=== PATIENT | female | born 1990 ===

== ENCOUNTER 2017-12-22 19:02 | Emergency (ER) | payer OTHER ==
[2017-12-22 19:02] VITALS: BMI 24.2
[2017-12-22 19:19] VITALS: BP 110/62; PULSE 64; RESP 18; TEMP 98.2; O2SAT 100
[2017-12-22] MEDS ORDERED: Sodium Chloride 0.9% 1,000 ML IV STA (20:00)
--- NOTE | 2017-12-22 20:03 | ED PDOC ---
HPI: Female Pain Time Seen by Provider: 12/22/17 19:46 Chief Complaint (Nursing): Abdominal Pain Chief Complaint (Provider): Pelvic pain History Per: Patient History/Exam Limitations: no limitations Onset/Duration Of Symptoms: Days (2) Additional Complaint(s): Pt. with pelvic pain on left lower. Constant. No nausea, vomit, diarrhea, weakness, headaches, back pain, vaginal bleeding. Increased frequency of urination. Is 5 wks preg. Past Medical History Reviewed: Nursing Documentation, Vital Signs Vital Signs: Last Vital Signs Temp 98.2 F 12/22/17 19:15 Pulse 64 12/22/17 19:15 Resp 18 12/22/17 19:15 BP 110/62 12/22/17 19:15 Pulse Ox 100 12/22/17 19:15 - Medical History PMH: No Chronic Diseases - Surgical History Surgical History: No Surg Hx - Family History Family History: States: Unknown Family Hx - Social History Alcohol: None Drugs: Denies - Home Medications Home Medications: Ambulatory Orders Medication Instructions Recorded No Known Home Med 08/12/16 - Allergies Allergies/Adverse Reactions: Allergies Allergy/AdvReac Type Severity Reaction Status Date / Time No Known Allergies Allergy Verified 08/12/16 12:09 Review of Systems ROS Statement: Except As Marked, All Systems Reviewed And Found Negative Genitourinary Female: Positive for: Frequency, Pelvic Pain Physical Exam - Reviewed Nursing Documentation Reviewed: Yes Vital Signs Reviewed: Yes - Physical Exam Appears: Positive for: Non-toxic, No Acute Distress Head Exam: Positive for: ATRAUMATIC, NORMAL INSPECTION, NORMOCEPHALIC Skin: Positive for: Normal Color, Warm, DRY Eye Exam: Positive for: EOMI, Normal appearance, PERRL ENT: Positive for: Normal ENT Inspection Neck: Positive for: Normal, Painless ROM Cardiovascular/Chest: Positive for: Regular Rate, Rhythm Respiratory: Positive for: CNT, Normal Breath Sounds Gastrointestinal/Abdominal: Positive for: Bowel Sounds, Soft, Tenderness (L lower pelvic) Back: Positive for: Normal Inspection. Negative for: L CVA Tenderness, R CVA Tenderness Extremity: Positive for: Normal ROM. Negative for: Tenderness, Pedal Edema Neurologic/Psych: Positive for: Alert, Oriented - Laboratory Results Result Diagrams: 12/22/17 21:12 12/22/17 21:12 Interpretation Of Abn Labs: bhcg elevated - ECG O2 Sat by Pulse Oximetry: 100 Pulse Ox Interpretation: Normal - CT Scan/US US Other Rad Studies (CT/US): Read By Radiologist Other Rad Interpretation: SLIUP; subchorionic bleed - Progress ED Course And Treament: 2320: Stable. AAOx3. Pain free. Tolerated PO. FU with obgyn. Disposition - Clinical Impression Clinical Impression: Threatened , Subchorionic bleed - Patient ED Disposition Is Patient to be Admitted: No Counseled Patient/Family Regarding: Studies Performed, Diagnosis, Need For Followup - Disposition Referrals: [facility] [Outside] - 12/23/17 [facility] - 12/24/17 Disposition: Routine/Home Disposition Time: 23:21 Condition: STABLE Additional Instructions: Return if not better in 3 days. Instructions: Threatened Miscarriage Print Language: MICRONESIAN
[2017-12-22 21:18] LABS: BASO % 0.4 % (0.0-2.0); EOS # 0.1 K/uL (0.0-0.7); EOS % 1.5 % (0.0-4.0); HEMOGLOBIN 10.6 g/dL (12.0-16.0); LYMPH # 1.1 K/uL (1.0-4.3); LYMPH % 23.7 % (20.0-40.0); MEAN CELL VOLUME 84.2 fl (81.0-99.0); MEAN CORPUSCULAR HEMOGLOBIN 28.1 pg (27.0-31.0); MEAN CORPUSCULAR HGB CONC 33.4 g/dL (33.0-37.0); MEAN PLATELET VOLUME 8.4 fl (7.2-11.7); MONO # 0.5 K/uL (0.0-0.8); MONO % 10.1 % (0.0-10.0); NEUT % 64.3 % (50.0-75.0); NRBC % 0.1 % (0.0-0.0); RBC 3.78 Mil/uL (3.80-5.20); RED CELL DISTRIBUTION WIDTH 15.3 % (11.5-14.5); WHITE BLOOD COUNT 4.7 K/uL (4.8-10.8)
--- NOTE | 2017-12-22 21:28 | US ---
EXAM: US , Transvaginal CLINICAL HISTORY: 27 years old, female; Pain; Other: Pelvic pain; Gestational age or lmp: 11/12/17; ; Additional info: Preg and pain TECHNIQUE: Real-time transvaginal obstetrical ultrasound of the maternal pelvis and a first trimester with image documentation. Transvaginal imaging was used for better evaluation of the fetus and adnexa. COMPARISON: No relevant prior studies available. FINDINGS: Gestation: Single live intrauterine gestation. heart rate of 113 beats per minute. [place]-rump length of 0.2 cm, correlating with gestational age of 5 weeks 5 days. Uterus/cervix: 1.6 x 0.5 x 1.6 cm collection along gestational sac. Closed cervix. Ovaries: RIGHT ovary: Normal. LEFT ovary: 3.7 x 3.9 x 4.4 cm anechoic lesion. No adnexal masses. Free fluid: No significant free fluid. IMPRESSION: 1. Single live intrauterine gestation. 2. Subchorionic hemorrhage. 3. LEFT ovarian cyst.
[2017-12-22 21:32] LABS: CALCIUM 8.6 mg/dL (8.4-10.2); GFR AFRICAN-AMERICAN > 60; GFR NON-AFRICAN AMERICAN > 60
[2017-12-22 21:51] LABS: ALB/GLOB RATIO 1.1 (1.0-2.1); ALBUMIN 3.9 g/dL (3.5-5.0); ALT/SGPT 33 U/L (9-52); AST/SGOT 37 U/L (14-36); BLOOD UREA NITROGEN 9 mg/dl (7-17)
== END 2017-12-22 23:52 | disposition home or self-care (01) ==
LOC: H.ER 19:02
DX: O20.0 Threatened abortion (principal); Z3A.01 Less than 8 weeks gestation of pregnancy
CPT/HCPCS: 76817; 80053; 81025; 84702; 85025; 86850; 86900; 96360; 99283; J7030

== ENCOUNTER 2018-01-17 06:11 | Emergency (ER) | payer OTHER ==
[2018-01-17 06:30] VITALS: BMI 30.8
--- NOTE | 2018-01-17 07:24 | ED PDOC ---
HPI: Female Pain Time Seen by Provider: 01/17/18 06:18 Chief Complaint (Nursing): Female Genitourinary Chief Complaint (Provider): Vaginal Bleeding and Lower Abdominal Pain History Per: Patient History/Exam Limitations: no limitations Onset/Duration Of Symptoms: Hrs Current Symptoms Are (Timing): Still Present Severity: None Quality Of Discomfort: "Pain" Associated Symptoms: denies: Fever, Nausea, Vomiting, Back Pain Alleviating Factors: None Additional Complaint(s): 27 year old female at 2 months presents to the emergency department complaining of vaginal bleeding and mild lower abdominal pain. Patient states that she noticed vaginal bleeding (x1 episode) in the toilet this morning after she peed. She reports that she has an appointment with the women[facility] health clinic on Thursday. Abnormal Vaginal Bleeding: Yes : 3 Para: 2 Past Medical History Reviewed: Historical Data, Nursing Documentation, Vital Signs Vital Signs: Last Vital Signs Temp 98.4 F 01/17/18 06:15 Pulse 62 01/17/18 06:15 Resp 16 01/17/18 06:15 BP 107/61 01/17/18 06:15 Pulse Ox 98 01/17/18 06:15 - Medical History PMH: No Chronic Diseases - Surgical History Surgical History: - Family History Family History: States: Unknown Family Hx - Living Arrangements Living Arrangements: With Family - Social History Current smoker - smoking cessation education provided: No Ex-Smoker (has not smoked in the last 12 months): No Alcohol: None Drugs: Denies - Home Medications Home Medications: Ambulatory Orders Medication Instructions Recorded No Known Home Med 08/12/16 - Allergies Allergies/Adverse Reactions: Allergies Allergy/AdvReac Type Severity Reaction Status Date / Time No Known Allergies Allergy Verified 01/17/18 06:30 Review of Systems ROS Statement: Except As Marked, All Systems Reviewed And Found Negative Gastrointestinal: Positive for: Abdominal Pain (mild lower abdominal pain) Genitourinary Female: Positive for: Vaginal Bleeding Physical Exam - Reviewed Nursing Documentation Reviewed: Yes Vital Signs Reviewed: Yes - Physical Exam Appears: Positive for: Non-toxic, No Acute Distress Head Exam: Positive for: ATRAUMATIC, NORMAL INSPECTION, NORMOCEPHALIC Skin: Positive for: Normal Color, Warm, Dry. Negative for: Rash Eye Exam: Positive for: Normal appearance, EOMI, PERRL. Negative for: Nystagmus ENT: Positive for: Normal ENT Inspection. Negative for: Nasal Congestion, Tonsillar Exudate, Tonsillar Swelling Neck: Positive for: Normal, Painless ROM, Supple Cardiovascular/Chest: Positive for: Regular Rate, Rhythm, Chest Non Tender. Negative for: Gallop, Murmur, Tachycardia Respiratory: Positive for: Normal Breath Sounds. Negative for: Rales, Rhonchi, Wheezing, Respiratory Distress Gastrointestinal/Abdominal: Positive for: Normal Exam, Bowel Sounds, Soft. Negative for: Tenderness, Mass, Guarding, Rebound Back: Positive for: Normal Inspection. Negative for: L CVA Tenderness, R CVA Tenderness, Vertebral Tenderness Extremity: Positive for: Normal ROM. Negative for: Tenderness, Calf Tenderness , Deformity, Swelling Neurologic/Psych: Positive for: Alert, Oriented, Gait. Negative for: Motor/ Sensory Deficits - Laboratory Results Result Diagrams: 01/17/18 07:35 01/17/18 07:35 - ECG O2 Sat by Pulse Oximetry: 98 (RA) Pulse Ox Interpretation: Normal Medical Decision Making Medical Decision Makin Initial Impression 27 year old female presenting with vaginal bleeding in Initial Plan: * ABO/RH type * Type and Screen * Beta-HCG, Quantitative * CMP * Udip * Upreg * CBC * PTT * Prothrombin Time * OB preg 1st Tri and OB Transvag * Reevaluation 0654 Upreg: Positive 0709 Udip: unremarkable 0904 PROCEDURE: OB Pelvic Ultrasound HISTORY: Vag bleeding LMP: COMPARISON: None available. FINDINGS: UTERUS: Gestational sac: Single intrauterine gestation. Heart rate: 159 bpm. age (Ultrasound estimated): 9 weeks and 5 days Mar-gestational hemorrhage: 3.2 x 0.9 x 1.3 centimeter subchorionic hemorrhage. . Date of delivery (Ultrasound estimated) : Uterus measures cm. Normal in size and appearance. CERVIX: Measures cm. Long and closed. No cervical abnormality seen. RIGHT OVARY: Measures cm. No mass lesion. Normal flow. LEFT OVARY: Measures cm. No solid mass. Normal flow. 5.4 centimeter corpus luteum cyst. FREE FLUID: None. OTHER FINDINGS: None. IMPRESSION: Nine weeks and 5 days gestational age . Small subchorionic hemorrhage. Documented by Maria Guadalupe Arevalo acting as a scribe for Jordyn Griffin MD. All medical record entries made by the Scribe were at my direction and personally dictated by me. I have reviewed the chart and agree that the record accurately reflects my personal performance of the history, physical exam, medical decision making, and the department course for this patient. I have also personally directed, reviewed, and agree with the discharge instructions and disposition. Disposition - Clinical Impression Clinical Impression: Subchorionic hemorrhage in first trimester Counseled Patient/Family Regarding: Studies Performed - Disposition Disposition: Routine/Home Disposition Time: 10:57 Condition: STABLE Additional Instructions: FOLLOW-UP WITH PREVIOUSLY SCHEDULED APPT WITH [facility]. Instructions: Threatened Miscarriage, Bleeding With Forms: [facility] [place] (Urdu) Print Language: ESTONIAN - POA Present On Arrival: None
[2018-01-17 07:48] LABS: BASO % 0.2 % (0.0-2.0); EOS # 0.1 K/uL (0.0-0.7); EOS % 1.4 % (0.0-4.0); LYMPH # 1.2 K/uL (1.0-4.3); LYMPH % 22.7 % (20.0-40.0); MEAN CELL VOLUME 85.3 fl (81.0-99.0); MEAN CORPUSCULAR HEMOGLOBIN 28.2 pg (27.0-31.0); MEAN CORPUSCULAR HGB CONC 33.1 g/dL (33.0-37.0); MEAN PLATELET VOLUME 7.6 fl (7.2-11.7); MONO # 0.4 K/uL (0.0-0.8); MONO % 7.1 % (0.0-10.0); NEUT # 3.6 K/uL (1.8-7.0); NEUT % 68.6 % (50.0-75.0); RBC 3.91 Mil/uL (3.80-5.20); RED CELL DISTRIBUTION WIDTH 15.3 % (11.5-14.5); WHITE BLOOD COUNT 5.2 K/uL (4.8-10.8)
[2018-01-17 08:01] LABS: PARTIAL THROMBOPLASTIN TIME 32.1 Seconds (25.6-37.1); PROTHROMBIN TIME 11.4 Seconds (9.8-13.1)
[2018-01-17 08:15] LABS: ALB/GLOB RATIO 1.1 (1.0-2.1); ALBUMIN 3.7 g/dL (3.5-5.0); ALT/SGPT 25 U/L (9-52); AST/SGOT 20 U/L (14-36); BLOOD UREA NITROGEN 9 mg/dl (7-17); CALCIUM 8.9 mg/dL (8.4-10.2); GFR AFRICAN-AMERICAN > 60; GFR NON-AFRICAN AMERICAN > 60
--- NOTE | 2018-01-17 09:05 | US ---
PROCEDURE: OB Pelvic Ultrasound HISTORY: Vag bleeding LMP: COMPARISON: None available. FINDINGS: UTERUS: Gestational sac: Single intrauterine gestation. Heart rate: 159 bpm. age (Ultrasound estimated): 9 weeks and 5 days Mar-gestational hemorrhage: 3.2 x 0.9 x 1.3 centimeter subchorionic hemorrhage. . Date of delivery (Ultrasound estimated) : Uterus measures cm. Normal in size and appearance. CERVIX: Measures cm. Long and closed. No cervical abnormality seen. RIGHT OVARY: Measures cm. No mass lesion. Normal flow. LEFT OVARY: Measures cm. No solid mass. Normal flow. 5.4 centimeter corpus luteum cyst. FREE FLUID: None. OTHER FINDINGS: None. IMPRESSION: Nine weeks and 5 days gestational age . Small subchorionic hemorrhage.
[2018-01-17 10:05] LABS: SQUAMOUS EPITHIAL < 1 /hpf (0-5); URINE BILIRUBIN NEGATIVE (NEGATIVE); URINE BLOOD NEGATIVE (NEGATIVE); URINE CLARITY SLIGHTY-CLOUDY (Clear); URINE COLOR YELLOW (YELLOW); URINE GLUCOSE (UA) NEG (Normal); URINE LEUKOCYTE ESTERASE NEG Leu/uL (Negative); URINE PROTEIN NEGATIVE (NEGATIVE); URINE UROBILINOGEN 0.2-1.0 mg/dL (0.2-1.0)
[2018-01-17 11:38] VITALS: BP 119/69; PULSE 84; RESP 18; TEMP 97.8
[2018-01-21 12:36] VITALS: O2SAT 98
== END 2018-01-17 11:36 | disposition home or self-care (01) ==
LOC: H.ER 06:11
DX: O20.9 Hemorrhage in early pregnancy, unspecified (principal)

== ENCOUNTER 2018-08-13 00:39 | Inpatient (IN) | payer MEDICAID ==
[2018-07-16 11:33] VITALS: BMI 30.8
[2018-08-13] MEDS ORDERED: Lactated Ringer's 1,000 ML IV SCH ×2 (02:15→14:04)
[2018-08-13] MEDS ORDERED: Oxytocin 30 UNIT 30 UNITS/500 ML BAG IV ONE (02:18)
[2018-08-13] MEDS: Lactated Ringer's 1,000 ML IV ONE ×2 (02:30→03:30)
[2018-08-13 02:47] LABS: BASO % 0.4 % (0.0-2.0); EOS % 0.7 % (0.0-4.0); HEMOGLOBIN 11.1 g/dL (12.0-16.0); LYMPH # 1.3 K/uL (1.0-4.3); LYMPH % 19.1 % (20.0-40.0); MEAN CELL VOLUME 89.8 fl (81.0-99.0); MEAN CORPUSCULAR HEMOGLOBIN 30.9 pg (27.0-31.0); MEAN CORPUSCULAR HGB CONC 34.5 g/dL (33.0-37.0); MONO # 0.4 K/uL (0.0-0.8); MONO % 5.8 % (0.0-10.0); NEUT # 5.1 K/uL (1.8-7.0); NRBC % 0.1 % (0.0-0.0); RBC 3.6 Mil/uL (3.80-5.20); RED CELL DISTRIBUTION WIDTH 14.7 % (11.5-14.5)
[2018-08-13 03:53] VITALS: O2SAT 99
[2018-08-13] MEDS ORDERED: Lactated Ringer's 1,000 ML IV ONE (07:17)
[2018-08-13] MEDS ORDERED: ceFAZolin 2 GM in Sodium Chloride 0.9% 100 ML IVPB ONE (07:30)
[2018-08-13] MEDS ORDERED: ceFAZolin IV 1 gm in Dextrose 0 GM/0 ML BAG IVPB ONE (07:49)
[2018-08-13] MEDS ORDERED: Azithromycin 500 MG in Sodium Chloride 0.9% 250 ML IVPB STA (08:29)
[2018-08-13] MEDS ORDERED: Morphine 1 mg/ml preservative-free Inj(Duramorph) ONE (10:42)
[2018-08-13] MEDS ORDERED: Phenylephrine 10 mg/ml Inj ONE (11:01)
--- NOTE | 2018-08-13 11:06 | OBHP ---
Datetime: 08/13/2018 02:02 IP Adm Impression: Term, intrauterine IP Admit Plan: Admit to unit Admit Comment, IP Provider: 27 y/o , 39 wks with EDC of 08/20/18 based on LMP presents to [facility] wit h suspected ROM. Patient noticed LOF(Clear fluid comes out with amlulation) at 12:15 am today. Report s feeling CTx Q8mins since ROM. Denies VB. Denies F/C/N/V/D. Patient is scheduled for repeat C sectio n tomorrow. clinic: [facility], Dr. Chan, scheduled for repeat 08/13/18, Placental Chorioangioma and L ovarian cyst on US. GBS Neg, O+, Ab neg, GC/Chl neg, HIV neg, RPR neg, Quantiferon Neg, Rubella immune. OBHx: 1) at term, 2) due to LGA PMHx: Denies PSHx: C section 2014 Allergies: NKDA Medications: PNVs, Feosol F/H: HLD in mother and father Social Hx: Denies tobaco/smoking/drugs PE: Gen: NAD Chest: RRR, S1S2 present Lungs: CTAB Abdomen: Soft, NT, gravid Ext: No pedal edema or calf tenderness SVE: + gross pooling, Cervix close/posterior/thick A/P: 27 y/o , 39 wks with EDC of 08/20/18 based on LMP presents to [facility] with suspected ROM. Latoya ent is scheduled for repeat today 08/13/[address] Chan - EFM and [place] monitoring - GBS Neg, O+, Ab neg, GC/Chl neg, HIV neg, RPR neg, Quantiferon Neg, Rubella immune. - SVE: + gross pooling, Cervix close/posterior/thick - ADmit to L_D - CTx Q5-6 mins - LR 1L @999 ml/hr - CBC, T_S - anesthesia consult - Monitor EFM and cervical change. - Scheduled for C section in AM Csae discussed with Dr. Alexi Escobedo, PGY1 Addendum by Dr. Melendez: I have evaluated the patient independently and I agree with the above Pelvic Type - PN: Not Done Extremities - PN: Normal Abdomen - PN: Normal Back - PN: Not Done Breast - PN: Not Done Lungs - PN: Normal Heart - PN: Normal Thyroid - PN: Not Done Neurologic - PN: Normal HEENT - PN: Normal General - PN: Normal FHR - Baseline A Provider: 130 Membranes, Provider: Ruptured Contraction Comments Provider: regular Q5 Comments, ACOG Physical Exam: Gen: NAD Chest: RRR, S1S2 present Lungs: CTAB Abdomen: Soft, NT, gravid Ext: No pedal edema or calf tenderness SVE: + gross pooling, Cervix close/posterior/thick IP Hx Assessment: The History has been Reviewed and is Current EGA AdmitDate IP: 39.0 Vital Signs Provider: Reviewed; Within Normal Limits IP Indication for Induction: Not Applicable IP Chief Complaint: Suspected ruptured membranes; Scheduled Section NICHD Variability Prov Fetus A: Moderate 6-25bpm NICHD Accel Fetus A IP Provider: [id number] FHR Category Provider Fetus A: Category I NICHD Decel Fetus A IP Provider: None Dilatation, Provider: 0 Genitourinary Exam: Normal DTRs - PN: Not Done Datetime: 08/13/2018 01:50 Pool Provider: Positive
[2018-08-13] MEDS ORDERED: Acetaminophen-Codeine 300/30 mg Tab PO PRN ×3 (12:10→15:10)
--- NOTE | 2018-08-13 13:28 | OBDS ---
DELIVERY PERSONNEL Delivery Doctor: Brandy Melendez MD Air Brush Operator: Jackie Orourke RN Anesthesiologist: DR WALDRON Resident: DR PEARSON OB FELLOW MATERNAL INFORMATION Delivery Anesthesia: Spinal Medications in Delivery: pitocin Placenta Cultured: Yes Maternal Complications: None Provider Comments: Surgeon: Dr. Melendez Tool Grinder Operator External: Dr. Pearson Pre-op Dx: Term ROM, previous x 1, for tubal sterilization, placenta chorioangionma Surgery: Repeat C-setion, BTL, biopsy of left ovarian cyst Post op: Same Findings: Live female 8lbs, 3oz, 9/9, light Meconium fluid, grossly nml tubes, uterus, plac enta had presence of chorioangioma, left ovarian solid cyst and 2cm, right adnexa nml Ansthesia: Spinal EBL: 800ml TOtal input: 1400mL Complications: none UO: 200ml Condition: stable Pathology: Placenta, cord blood, left tubal specimen, right tube with fibria, portion of left ovar azael cyst LABOR SUMMARY EDC: 08/20/2018 00:00 No. Babies in Womb: 1 Attempted: No Labor Anesthesia: None LABOR INFORMATION Reason for Induction: Not Applicable Oxytocin: N/A Group B Beta Strep: Negative Antibiotics # of Doses: 0 Antibiotics Time of Last Dose: 0 Steroids Given: None Reason Steroids Not Administered: Not Applicable MEMBRANES Membranes Rupture Method: Spontaneous Rupture of Membranes: 08/13/2018 12:15 Length of Rupture (hrs): -0.97 Amniotic Fluid Color: Clear Amniotic Fluid Amount: Moderate Amniotic Fluid Odor: Normal STAGES OF LABOR Stage 3 hrs: 0 Stage 3 min: 1 VAGINAL DELIVERY Episiotomy: None Laceration Extension: N/A Laceration Type: None Sponge Count Correct: N/A CSECTION DELIVERY Primary Indication: Repeat Elective CSection Urgency: Elective CSection Incidence: Repeat Labor: No Labor Elective: Elective BABY A INFORMATION Delivery Date/Time: 08/13/2018 11:17 Method of Delivery: Born in Route : No : N/A Forceps: N/A Vacuum Extraction: N/A Shoulder Dystocia : No SHOULDER DYSTOCIA BABY A Delivery Date/Time: 08/13/2018 11:17 PRESENTATION/POSITION BABY A Presentation: Cephalic Cephalic Presentation: Vertex Breech Presentation: N/A PLACENTA INFORMATION BABY A Placenta Delivery Time : 08/13/2018 11:18 Placenta Method of Delivery: Expressed Placenta Status: Delivered SCORES BABY A Heart Rate 1 min: >100 bpm Resp Effort 1 min: Good Cry Reflex Irritability 1 min: Cough or Sneeze or Pulls Away Muscle Tone 1 min: Active Motion Color 1 min: Body [place], Extremities Blue SCORE 1 MIN: 9 Heart Rate 5 min: >100 bpm Resp Effort 5 min: Good Cry Reflex Irritability 5 min: Cough or Sneeze or Pulls Away Muscle Tone 5 min: Active Motion Color 5 min: Body [place], Extremities Blue SCORE 5 MIN: 9 INFANT INFORMATION BABY A Gestational Age at Delivery: 39.0 Gestational Status: Term Outcome : Liveborn Condition : Stable Sex: Female IDENTIFICATION/MEDS BABY A ID Band Number: [id number] ID Band Location: Left Leg; Left Arm WEIGHT/LENGTH BABY A Infant Birthweight (gms): 3715 Weight (lb): 8 Infant Weight (oz): 3 Infant Length Inches: 19.50 Length cms: 49.5 CORD INFORMATION BABY A No. Cord Vessels: 3 Nuchal Cord : N/A Nuchal Cord Other: N/A True Knot: N/A Cord Blood Taken: Yes Suction: None
[2018-08-13] MEDS ORDERED: DiphenhydrAMINE 50 mg/ml Inj IVP PRN (15:30)
[2018-08-13] MEDS ORDERED: Simethicone 80 mg Chewtab PO SCH ×2 (16:00)
[2018-08-13] MEDS: Simethicone 80 mg Chewtab PO SCH ×2 (17:50→23:39)
[2018-08-13] MEDS: Lactated Ringer's 1,000 ML IV SCH ×2 (17:51→23:05)
--- NOTE | 2018-08-14 03:26 | OP ---
PROCEDURE DATE: 08/13/2018 PREOPERATIVE DIAGNOSES: 1. Term , ruptured membranes. 2. Previous section x1. 3. Desires tubal sterilization. 4. Placental chorioangioma. 5. Left ovarian cyst. POSTOPERATIVE DIAGNOSES: 1. Term , ruptured membranes. 2. Previous section x1. 3. Desires tubal sterilization. 4. Placental chorioangioma. 5. Left ovarian cyst. PROCEDURE: Repeat , bilateral tubal ligation, biopsy of left ovarian cyst. SURGEON: Kelly Melendez MD. FIELD SUPPORT TECHNICIAN: Anu Pearson. FINDINGS: Live female infant, cephalic presentation, 8 pounds 3 ounces, 9 and 9 Apgars, light meconium fluid, grossly normal tubes and uterus. Placenta had presence of chorioangioma, left ovary had solid cyst about 2 cm. Right adnexa normal. ANESTHESIA: Spinal by Dr. Sin. TOTAL FLUID INPUT: 1400. URINE OUTPUT: 200. ESTIMATED BLOOD LOSS: 800 mL. COMPLICATIONS: None. CONDITIONS: Stable. PATHOLOGY SPECIMEN: Placenta, cord blood, left tubal specimen, portion of right tube with fimbriae and portion of left ovarian cyst. INDICATION: This is a 27-year-old G2, P1 at 39 plus weeks, previous x1, did not desire , presented to labor and delivery with rupture of membranes on the day of her scheduled periop. The patient desired to proceed with repeat . Risks and benefits of surgery were reviewed with the patient and the patient signed an informed consent. The patient also verbalized that she desired to go forward with permanent sterilization procedure. Again, the tubal ligation procedure and the mcfp consequences were reviewed with the patient that she would no longer be able to conceive naturally after procedure was done. The patient verbalized again that she desired to have permanent sterilization. It was included in the consent as well as the consent for sterilization was separately included. The patient was also aware of the left ovarian cyst and vocalized that if possible to remove at the time of surgery. DESCRIPTION OF PROCEDURE: The patient was taken to the OR. Ancef and azithromycin were given preoperatively. SCDs were placed bilaterally. The patient was prepped and draped in a normal sterile fashion in dorsal supine position with a leftward tilt. A Pfannenstiel skin incision was made to the previous incision with a scalpel and carried through the underlying layer of subcutaneous fat and fascia with the scalpel. The fascia was incised in the midline. The incision was extended laterally with the Bovie. Kaylee clamps were used to tent up the inferior aspect of this incision, which we dissected off of the underlying pyramidalis muscles with the Bovie. In a similar fashion, we tented up the superior aspect of this incision, which we dissected off of the underlying rectus abdominis muscles with the Bovie. The muscle was tented up at the midline and carefully dissected at the midline with the aid of the scalpel. The peritoneal cavity was entered, incision extended superiorly and inferiorly with good visualization of all underlying organs. The bladder blade was inserted. The vesicouterine peritoneum was identified, grabbed with pickups, and the bladder flap was created with Metzenbaum scissors. The lower uterine segment was incised in a transverse fashion. The uterine cavity was entered. The incision was extended manually and with the aid of the bandage scissors. The uterine cavity was entered and was delivered in cephalic presentation. Light meconium noted followed by shoulders and rest of the infant without complications. Mouth and nose were suctioned. Cord was clamped and cut. Infant was handed off to awaiting pediatric team. Cord blood was obtained. Placenta was extracted manually. The uterus was exteriorized, cleared of all clots. Uterine incision was repaired with 0 Vicryl stitch, imbricated in certain spots with a 0 Monocryl stitch. Overall hysterotomy site appears to be hemostatic. We then turned our direction to the bilateral fallopian tubes. On the left side, the sterilization procedure was performed using a Kim technique with the aid of plain gut suture. There were a lot of venous engorgement on both sides by the tubes. The left side had to be imbricated with 2-0 Vicryl stitch for the area that was resected to be hemostatic. A section of the tube was sent for pathology and the area was also cauterized. On the right side, we decided to resect the lower third of the fallopian tube which included the fimbriae. Two Caron clamps were placed and the specimen was truncated off with the aid of Metzenbaum scissors. Vicryl stitch free passed and then with the stitch were used to tamponade the resection. Otherwise the area resected was hemostatic at the end of the procedure. Attention was then turned to the left ovary where there was evidence of a 2 cm solid appearing mass, yellowish and pinkish in appearance. The mass was solid that extended into the ovary, so the decision was made to take a small biopsy of the solid cyst and that was also sent for pathology. The area was cauterized. The gutters were cleared off all clots with irrigation. The uterus was returned to the abdomen. Again the hysterotomy site and the tubes resected were inspected and found to be hemostatic. The peritoneal muscles were closed with 2-0 Monocryl. The muscle was cauterized with Bovie and the fascia was closed with a 0 Vicryl stitch. On the subcutaneous fat, small bleeders were cauterized and reapproximated with plain gut suture and the skin was closed with 4-0 Monocryl. Sponge, lap, and needle counts were correct x4. The patient was taken to recovery room in stable condition. There were no other complications. Kelly Melendez MD
[2018-08-14] MEDS: Simethicone 80 mg Chewtab PO SCH ×4 (05:00→21:30)
[2018-08-14 07:26] LABS: MEAN CELL VOLUME 89.4 fl (81.0-99.0); MEAN CORPUSCULAR HEMOGLOBIN 30.4 pg (27.0-31.0); MEAN CORPUSCULAR HGB CONC 33.9 g/dL (33.0-37.0); RBC 3.3 Mil/uL (3.80-5.20); RED CELL DISTRIBUTION WIDTH 14.2 % (11.5-14.5); WHITE BLOOD COUNT 8.3 K/uL (4.8-10.8)
--- NOTE | 2018-08-14 08:25 | OBPPN ---
Datetime: 08/14/2018 07:25 PP Pain Prov: Within normal limits PP Nausea Prov: Denies PP Flatus Prov: No PP Breasts Prov: Not Done PP Heart Prov: Normal PP Lungs Prov: Normal PP Abdomen/Uterus Prov: Normal PP Lochia Prov: Not Done PP Vulva/Perineum Prov: Not Done PP CVA Tenderness Prov: Normal PP Extremities Prov: Normal PP C/S Incision Prov: Normal PP Progress Prov: Normal PP Impression Prov: Normal progression PP Plan Prov: Continue present management PP Progress Note Prov: 27y/o , 39.0 wks S/P Repeat C section POD1 Patient seen and evaluated at bedside. Reports moderate abdominal pain which is well controlled wi th pain medications. Faustin D/C, dressing present, to be removed at 11 AM 08/14/18. Patient reports imp rovement in nausea and currently tolerating regular diet well. Lochia similar to menses. Not passing flatus and no BM yet. Denies fever, chills, nausea, vomiting, diarrhea, CP, SOB. w/o di fficulties. O: VSS GEN: Patient is comfortable. In no acute distress. Cardio: S1S2, no murmurs, gallops or rubs. Lungs: clear air entry sounds b/l, no wheezing Abdomen: BS+, tenderness to palpation. Dressing present, Incision C/D/I, Uterus is firm and at the level of the umbilicus. EXT: No edema, calves non-tender to palpation, Caitlin's Negative Assessment/Plan: 27 y/o , 39.0 S/P Repeat C section on POD1. - SCDs for DVT prophylaxis, encouraged ambulating - Tylenol /Codeine and Ibuprofen 600 mg for pain - Colace BID for constipation -Simethicone 80 mg Q6 hr - Continue to encourage and ambulating - f/u CBC post op: Pending - Anticipated D/C on 08/16/18 --- Olaf Escobedo MD PGY-[address] Melendez: I have evaluated the patient independently and I agree with the above Vital Signs Provider PP: Reviewed
[2018-08-14] MEDS: Multivitamin With Minerals Tab PO SCH (08:59)
[2018-08-14] MEDS ORDERED: Multivitamin With Minerals Tab PO SCH ×2 (09:00)
[2018-08-15] MEDS: Simethicone 80 mg Chewtab PO SCH ×4 (03:50→21:29)
--- NOTE | 2018-08-15 08:58 | OBPPN ---
Datetime: 08/15/2018 06:55 PP Pain Prov: Within normal limits PP Nausea Prov: Denies PP Flatus Prov: Yes PP BM Prov: Yes PP Heart Prov: Normal PP Lungs Prov: Normal PP Abdomen/Uterus Prov: Normal PP Lochia Prov: Normal PP Extremities Prov: Normal PP Impression Prov: Normal progression PP Plan Prov: Continue present management PP Progress Note Prov: 27 y/o , POD2, s/p was seen and examined this AM. Baby was in b ed with patient . She reports tolerating PO regular diet w/o complaints. She has been OO B with minimal pain, which is well controlled. +Flatus, +BM. Lochia like menses. She denied f/c/n/d/c p or sob. VS: wnl GEN: Laying upright in bed, breast feeding Cardio: S1S2, no mrg Lungs: cta b/l Abdomen: soft, nontender, BS+, appropriate tenderness to palpation; dressing c/d/i; fundus @ level of umbilibus. umbilicus. EXT: Non-edematous, calves non-tender to palpation Assessment/Plan: 27 y/o , POD2, s/p c-sectio - Continue SCDs for DVT prophylaxis -Ambulation encouraged. - Continue pain mangement. - Continue to encourage . - Anticipated D/C on 08/16/18 Case discussed with attending -Delia Denise, PGY-1, FM The patient was seen with the resident I agree with the note Vital Signs Provider PP: Reviewed; Within Normal Limits Datetime: 08/14/2018 07:25 PP Comments Phys Exam Prov: Fundus firm Incision clean/dry/intact
[2018-08-15] MEDS: Multivitamin With Minerals Tab PO SCH (09:43)
[2018-08-16] MEDS: Simethicone 80 mg Chewtab PO SCH (03:27)
[2018-08-16] MEDS: Multivitamin With Minerals Tab PO SCH (09:22)
--- NOTE | 2018-08-16 10:47 | OBDCSUM ---
Datetime: 08/16/2018 08:49 Discharged to, Provider: Home Follow up at, Provider: [facility] Disch Instr Activity: Normal activity Disch Instr Diet: Regular Discharge Instructions, Provider: Routine instructions given Discharge Diagnosis, Provider: Term Delivered Discharge Time: 08/16/2018 10:00 Follow up in weeks, Provider: 1 wk wound check Disch Referrals: None Contraception discussed, Prov: Yes Disch Activity Restrictions: No exercising; No lifting; Nothing in vagina - [place], tampons, do ellis Discharge Comment, Provider: Discharge Summary DOA: 08/13/2018 EGA: 39.0 Diagnosis: Repeat Summary of : 27 y/o s/p repeat L_D summary: Patient tolerated surgery well. Pain was well controlled with pain meds. D/c berger, phyllis ressing removed, incision site healing well, no exudate seen, dry and intact. No nausea; advised to a dvance diet as tolerated. Breast feeding without difficulty and supplementing with formula. Lochia is similar to menses volume. Reports she has been having regular bowel movements. DOL: 08/13/18 at 11:17 repeat NB: female : 03/[birth year] Weight: 3715g Lochia= menses, mild pain, controlled with medications Rubella immune, Tdap 06/30/18 Blood type: O+, Antibody Neg CBC pp: 11.1/32.3 Discharge Date: 08/16/2018 Time 10:00 AM Discharge Instructions: -Encourage -Encourage ambulation -Percocet/Ibuprofen for pain PRN - ED precautions: If excessive bleeding, pain that does not get relief, fever >100.4, palpitations , SOB, CP or other concerning symptom go to the ED. - PT was urged if feeling sad, mood swing, depression, neglect of baby, suicidal thoughts, homicid al thoughts go to ER or call 911 for help - Pt should go to her Primary care doctor if have difficulty with breast feeding - F/U at [facility] in 1 week for wound check and 4-6 week for checkup. Griselda Poole pgyi Agree with above resident note --Dr. Overton Contraception after Delivery: Undecided
--- NOTE | 2018-08-16 10:48 | OBPPN ---
Datetime: 08/16/2018 07:31 PP Pain Prov: Within normal limits PP Nausea Prov: Denies PP Flatus Prov: Yes PP BM Prov: Yes PP Breasts Prov: Not Done PP Heart Prov: Normal PP Lungs Prov: Normal PP Abdomen/Uterus Prov: Normal PP Lochia Prov: Normal PP Vulva/Perineum Prov: Not Done PP CVA Tenderness Prov: Not Done PP Extremities Prov: Normal PP C/S Incision Prov: Normal PP Progress Prov: Normal PP Impression Prov: Normal progression PP Plan Prov: Discharge PP Progress Note Prov: 27 y/o , POD2, s/p was seen and examined this AM. No complaints at this time. Ambulating, tolerating PO, no breast feeding difficulties. VS: wnl GEN: Laying upright in bed, breast feeding Cardio: S1S2, no mrg Lungs: cta b/l Abdomen: soft, nontender, BS+, appropriate tenderness to palpation; dressing c/d/i; fundus @ level of umbilibus. umbilicus. EXT: Non-edematous, calves non-tender to palpation Assessment/Plan: 27 y/o , POD3, s/p -Ambulation encouraged. - Continue pain mangement. - Continue to encourage . - Discharge today Case discussed with attending -Griselda Poole, PGY-1, FM Patient seen and examined this am. Agree with above resident note. --Dr. Macias IP PP Procedures: None Vital Signs Provider PP: Reviewed; Within Normal Limits
[2018-08-16 22:12] VITALS: BP 112/73; PULSE 96; RESP 20; TEMP 98.2
== END 2018-08-16 14:15 | disposition home or self-care (01) | DRG 371 ==
LOC: H.EROB2 00:39 → H.L&D 01:07 → H.OB/GYN 14:44
PROVIDERS: ADMIT Obstetrics & Gynecology; ATTEND Obstetrics & Gynecology
PROC: 10D00Z1 Extraction of Products of Conception, Low, Open Approach (ICD-10-PCS; principal; 2018-08-13)
PROC: 0UB70ZZ Excision of Bilateral Fallopian Tubes, Open Approach (ICD-10-PCS; 2018-08-13)
PROC: 4A1HXCZ Monitoring of Products of Conception, Cardiac Rate, External Approach (ICD-10-PCS; 2018-08-13)
DX: O34.211 Maternal care for low transverse scar from previous cesarean delivery (principal); N85.8 Other specified noninflammatory disorders of uterus; Z30.2 Encounter for sterilization; D26.7 Other benign neoplasm of other parts of uterus; O34.83 Maternal care for other abnormalities of pelvic organs, third trimester; O77.0 Labor and delivery complicated by meconium in amniotic fluid; Z3A.39 39 weeks gestation of pregnancy; Z37.0 Single live birth